=== PATIENT | male | born 1960 | race Caucasian/White ===

== ENCOUNTER 2017-11-03 17:49 | Emergency (ER) | payer OTHER, BC ==
--- NOTE | 2017-11-03 19:01 | ER Document Report ---
ED Medical Screen (RME) - General Chief Complaint: Abnormal Lab Results Stated Complaint: ABNORMAL LABS Time Seen by Provider: 11/03/17 18:51 Mode of Arrival: Ambulatory Information source: Patient Notes: 57-year-old man with a history of left staghorn calculus [facility]. Patient does report some left flank discomfort. TRAVEL OUTSIDE OF THE [place] IN LAST 30 DAYS: No - Related Data Allergies/Adverse Reactions: No Known Allergies Allergy (Unverified 09/09/15 06:49) Past Medical History - Social History Chew tobacco use (# tins/day): No Frequency of alcohol use: None Drug Abuse: None - Past Medical History Cardiac Medical History: Reports: Hx Coronary Artery Disease, Hx Heart Attack, Hx Hypertension Endocrine Medical History: Denies: Hx Diabetes Mellitus Type 1, Hx Diabetes Mellitus Type 2 Renal/ Medical History: Reports: Hx Kidney Stones. Denies: Hx Peritoneal Dialysis Past Surgical History: Reports: Hx Coronary Stent, Hx Kidney (Renal Surgery) - surgery to remove stones, Hx Orthopedic Surgery - Wrist surgery, Hx Urinary Tract Surgery - surgery to remove stones - Immunizations Hx Diphtheria, Pertussis, Tetanus Vaccination: Yes Physical Exam - Vital signs Vitals: Temp Pulse Resp BP Pulse Ox 98.0 F 75 16 111/94 H 96 11/03/17 18:15 11/03/17 18:15 11/03/17 18:15 11/03/17 18:15 11/03/17 18:15 Course - Vital Signs Vital signs: Temp Pulse Resp BP Pulse Ox 98.0 F 75 16 111/94 H 96 11/03/17 18:15 11/03/17 18:15 11/03/17 18:15 11/03/17 18:15 11/03/17 18:15 Doctor's Discharge - Discharge Referrals: DANE VALDEZ MD [Primary Care Provider] - Follow up as needed
[2017-11-03 19:23] LABS: ABSOLUTE BASOPHILS # (AUTO) 0.1 10^3/uL (0.0-0.2); ABSOLUTE EOSINOPHILS # (AUTO) 0.5 10^3/uL (0.0-0.6); ABSOLUTE LYMPHOCYTES (AUTO) 2.1 10^3/uL (0.5-4.7); ABSOLUTE NEUT (AUTO) 8.3 10^3/uL (1.7-8.2); BASOPHILS % (AUTO) 0.6 % (0-2); EOSINOPHILS % (AUTO) 4.4 % (0-6); HEMATOCRIT 47.2 % (37.9-51.0); HEMOGLOBIN 15.9 g/dL (13.5-17.0); LYMPHOCYTES % (AUTO) 17.6 % (13-45); MEAN CORPUSCULAR HGB CONC 33.7 g/dL (32.0-36.0); MEAN CORPUSCULAR VOLUME 86 fl (80-97); MONOCYTES % (AUTO) 8.1 % (3-13); PLATELET COUNT 231 10^3/uL (150-450); RED BLOOD COUNT 5.49 10^6/uL (4.35-5.55); RED CELL DISTRIBUTION WIDTH 14.8 % (11.5-14.0); SEGMENTED NEUTROPHILS % (AUTO) 69.3 % (42-78); TOTAL CELLS COUNTED % (AUTO) 100 %
--- NOTE | 2017-11-03 19:38 | ER Document Report ---
ED General - General Chief Complaint: Abnormal Lab Results Stated Complaint: ABNORMAL LABS Time Seen by Provider: 11/03/17 18:51 Mode of Arrival: Ambulatory Information source: Patient, [facility] Records Notes: 57-year-old male with coronary artery disease, hypertension, history of staghorn calculi presents after his primary care physician requested him go to the emergency department after recent labs showed a new GFR of 32 down from 60. Patient has a long-standing history of kidney stones. He states he was seen for a long time at [facility] by Dr. Dipesh Church. He underwent renal stents, lithotripsy. He states he required coiling of the kidney due to excessive bleeding because he was on Plavix. He was told that if he did not stop the blood thinning medications his kidney would never heal. He was seen by his material worker and was taken off the Plavix in June for 6 months. Patient currently denying any pain. He does admit to left CVA pressure but states this is not new. He otherwise feels well. TRAVEL OUTSIDE OF THE [place] IN LAST 30 DAYS: No - HPI Onset: Other Onset/Duration: Gradual, Persistent, Worse Quality of pain: Pressure Severity: Mild Associated symptoms: None Exacerbated by: Denies Relieved by: Denies Similar symptoms previously: Yes Recently seen / treated by doctor: Yes - Dr. Bowers at [facility] [phone] - Related Data Allergies/Adverse Reactions: No Known Allergies Allergy (Unverified 09/09/15 06:49) Past Medical History - General Information source: Patient - Social History Smoking Status: Never Smoker Chew tobacco use (# tins/day): No Frequency of alcohol use: None Drug Abuse: None Lives with: Spouse/Significant other Family History: CAD, Hypertension Patient has suicidal ideation: No Patient has homicidal ideation: No - Past Medical History Cardiac Medical History: Reports: Hx Coronary Artery Disease, Hx Heart Attack, Hx Hypertension Endocrine Medical History: Denies: Hx Diabetes Mellitus Type 1, Hx Diabetes Mellitus Type 2 Renal/ Medical History: Reports: Hx Kidney Stones. Denies: Hx Peritoneal Dialysis Past Surgical History: Reports: Hx Coronary Stent, Hx Kidney (Renal Surgery) - surgery to remove stones, Hx Orthopedic Surgery - Wrist surgery, Hx Urinary Tract Surgery - surgery to remove stones - Immunizations Hx Diphtheria, Pertussis, Tetanus Vaccination: Yes Review of Systems - Review of Systems Notes: REVIEW OF SYSTEMS: CONSTITUTIONAL : Denies fever, chills, or sweats. Denies recent illness. Denies weight loss, recent hospitalizations. EENT: Denies visual changes, eye pain. Denies nasal or sinus congestion or discharge. Denies sore throat, oral lesions, difficulty swallowing. CARDIOVASCULAR: Denies chest pain. Denies palpitations. Denies lower extremity edema. RESPIRATORY: Denies cough, cold, or chest congestion. Denies shortness of breath, wheezing. GASTROINTESTINAL: Denies abdominal pain or distention. Denies nausea, vomiting , or diarrhea. Denies blood in vomitus, stools, or per rectum. Denies black, tarry stools. Denies constipation. GENITOURINARY: Denies difficulty urinating, painful urination, frequency, blood in urine, or vaginal discharge. MUSCULOSKELETAL: Denies back or neck pain or stiffness. Denies joint pain or swelling. SKIN: Denies rash, lesions or sores. HEMATOLOGIC : Denies easy bruising or bleeding. LYMPHATIC: Denies swollen glands. NEUROLOGICAL: Denies confusion or altered mental status. Denies passing out or loss of consciousness. Denies dizziness or lightheadedness. Denies headache. Denies weakness or paralysis. Denies problems difficulty with ambulation, slurred speech. Denies sensory loss, numbness, or tingling. Denies seizures. PSYCHIATRIC: Denies anxiety or stress. Denies depression, suicidal ideation, or homicidal ideation. Denies visual or auditory hallucinations. Physical Exam - Vital signs Vitals: Temp Pulse Resp BP Pulse Ox 98.0 F 75 16 111/94 H 96 11/03/17 18:15 11/03/17 18:15 11/03/17 18:15 11/03/17 18:15 11/03/17 18:15 - Notes Notes: PHYSICAL EXAMINATION: GENERAL: Well-appearing, well-nourished and in no acute distress. HEAD: Atraumatic, normocephalic. EYES: Pupils equal round and reactive to light, extraocular movements intact, sclera anicteric, conjunctiva are normal. ENT: Nares patent, oropharynx clear without exudates. Moist mucous membranes. NECK: Normal range of motion, supple without lymphadenopathy LUNGS: Breath sounds clear to auscultation bilaterally and equal. No wheezes rales or rhonchi. HEART: Regular rate and rhythm without murmurs ABDOMEN: Soft, nontender, nondistended abdomen. No guarding, no rebound. No masses appreciated. Musculoskeletal: Normal range of motion, no pitting or edema. No cyanosis. NEUROLOGICAL: Cranial nerves grossly intact. Normal speech, normal gait. Normal sensory, motor exams PSYCH: Normal mood, normal affect. SKIN: Warm, Dry, normal turgor, no rashes or lesions noted. Course - Re-evaluation Re-evalutation: Laboratory 11/03/17 11/03/17 11/03/17 19:05 19:05 21:42 WBC 12.0 H RBC 5.49 Hgb 15.9 Hct 47.2 MCV 86 MCH 29.0 MCHC 33.7 RDW 14.8 H Plt Count 231 Seg Neutrophils % 69.3 Lymphocytes % 17.6 Monocytes % 8.1 Eosinophils % 4.4 Basophils % 0.6 Absolute Neutrophils 8.3 H Absolute Lymphocytes 2.1 Absolute Monocytes 1.0 Absolute Eosinophils 0.5 Absolute Basophils 0.1 Sodium 146.1 H Potassium 5.6 H Chloride 108 H Carbon Dioxide 24 Anion Gap 14 BUN 26 H Creatinine 1.47 H Est GFR ( Amer) > 60 Est GFR (Non-Af Amer) 49 L Glucose 92 Calcium 10.0 Total Bilirubin 1.5 H Direct Bilirubin 0.3 Neonat Total Bilirubin Not Reportable Neonat Direct Bilirubin Not Reportable Neonat Indirect Bili Not Reportable AST 31 ALT 31 Alkaline Phosphatase 82 Total Protein 8.3 H Albumin 4.8 Urine Color YELLOW Urine Appearance SLIGHTLY-CLOUDY Urine pH 5.0 Ur Specific [place] 1.019 Urine Protein NEGATIVE Urine Glucose (UA) NEGATIVE Urine Ketones 20 H Urine Blood NEGATIVE Urine Nitrite NEGATIVE Urine Bilirubin NEGATIVE Urine Urobilinogen NEGATIVE Ur Leukocyte Esterase LARGE H Urine WBC (Auto) 71 Urine RBC (Auto) 7 Urine Bacteria (Auto) TRACE Squamous Epi Cells Auto <1 Urine Mucus (Auto) RARE Urine Ascorbic Acid 40 H 11/03/17 22:30 WBC RBC Hgb Hct MCV MCH MCHC RDW Plt Count Seg Neutrophils % Lymphocytes % Monocytes % Eosinophils % Basophils % Absolute Neutrophils Absolute Lymphocytes Absolute Monocytes Absolute Eosinophils Absolute Basophils Sodium Potassium 4.6 D Chloride Carbon Dioxide Anion Gap BUN Creatinine Est GFR ( Amer) Est GFR (Non-Af Amer) Glucose Calcium Total Bilirubin Direct Bilirubin Neonat Total Bilirubin Neonat Direct Bilirubin Neonat Indirect Bili AST ALT Alkaline Phosphatase Total Protein Albumin Urine Color Urine Appearance Urine pH Ur Specific [place] Urine Protein Urine Glucose (UA) Urine Ketones Urine Blood Urine Nitrite Urine Bilirubin Urine Urobilinogen Ur Leukocyte Esterase Urine WBC (Auto) Urine RBC (Auto) Urine Bacteria (Auto) Squamous Epi Cells Auto Urine Mucus (Auto) Urine Ascorbic Acid Limited or Localized CT 11/03/17 18:59 IMPRESSION: 1. Cholelithiasis. 2. Dense left renal calcifications of uncertain etiology. Is there a clinical history of tuberculosis? Renal Ultrasound 11/03/17 19:33 IMPRESSION: Dense intrarenal calcifications in the left kidney of uncertain etiology. No ureteral obstruction. 11/03/17 23:41 57-year-old male with complex nephrology and urology history secondary to staghorn calculi. Patient has undergone extensive testing, interventions for the staghorn calculi without improvement. Recently his primary care physician did blood work which he was informed today required him to be seen in the emergency department. Per the patient he was informed that his GFR was 32. Today it is 49. He does have mild elevation in his creatinine which is likely the patient's baseline. Potassium was found to be 5.6 and was treated with calcium and insulin. Repeat potassium is now 4.6. Patient warned against eating foods high in potassium at this time. I did attempt to contact Dr. Bowers but was unsuccessful. Patient does not want admission or transfer. He says that he has a relationship with the urologist and drivers license examiner in [place]. He will return to Dr. Bowers's clinic tomorrow with the results of today' s testing which I have provided him. Patient has remained comfortable and stable throughout his ED course. He does not complain of any pain. Keflex given for patient's UTI. Patient provided the opportunity to ask questions, and express concerns. Discharge instructions discussed. Patient is agreeable with discharge home. Return indications explained and discussed with the patient who displays understanding. Patient encouraged to return to the emergency department immediately with any concerns. 11/04/17 00:08 - Vital Signs Vital signs: Temp Pulse Resp BP Pulse Ox 98.0 F 75 16 111/94 H 96 11/03/17 18:15 11/03/17 18:15 11/03/17 18:15 11/03/17 18:15 11/03/17 18:15 - Laboratory Result Diagrams: 11/03/17 19:05 07/31/18 22:30 Laboratory results interpreted by me: 11/03/17 11/03/17 11/03/17 19:05 19:05 21:42 WBC 12.0 H RDW 14.8 H Absolute Neutrophils 8.3 H Sodium 146.1 H Potassium 5.6 H Chloride 108 H BUN 26 H Creatinine 1.47 H Est GFR (Non-Af Amer) 49 L Total Bilirubin 1.5 H Total Protein 8.3 H Urine Ketones 20 H Ur Leukocyte Esterase LARGE H Urine Ascorbic Acid 40 H - Diagnostic Test Radiology reviewed: Image reviewed, Reports reviewed - EKG Interpretation by Me EKG shows normal: Sinus rhythm Rate: Normal Rhythm: NSR When compared to previous EKG there are: No significant change Discharge - Discharge Clinical Impression: Staghorn calculus, CAL (acute kidney injury), Hyperkalemia UTI (urinary tract infection) Qualifiers: Urinary tract infection type: site unspecified Hematuria presence: without hematuria Qualified Code(s): N39.0 - Urinary tract infection, site not specified Condition: Good Disposition: HOME, SELF-CARE Instructions: Cephalexin ([facility]), Kidney Injury ([facility]), Urinary Tract Infection ( [facility]) Prescriptions: Cephalexin Monohydrate [Keflex 500 mg Capsule] 500 mg PO BID 10 Days #20 capsule Forms: Elevated Blood Pressure Referrals: DANE VALDEZ MD [NO LOCAL MD] - Follow up as needed
[2017-11-03 19:45] LABS: ALANINE AMINOTRANSFERASE 31 U/L (21-72); ALBUMIN 4.8 g/dL (3.5-5.0); ALKALINE PHOSPHATASE 82 U/L (38-126); ANION GAP 14 (5-19); ASPARTATE AMINO TRANSFERASE 31 U/L (17-59); BILIRUBIN,DIRECT 0.3 mg/dL (0.0-0.4); BILIRUBIN,TOTAL 1.5 mg/dL (0.2-1.3); BLOOD UREA NITROGEN 26 mg/dL (7-20); CARBON DIOXIDE 24 mmol/L (22-30); CHLORIDE 108 mmol/L (98-107); GLUCOSE 92 mg/dL (75-110); POTASSIUM 5.6 mmol/L (3.6-5.0); SODIUM 146.1 mmol/L (137-145); TOTAL PROTEIN 8.3 g/dL (6.3-8.2)
--- NOTE | 2017-11-03 19:51 | RADIOLOGY REPORT (SQ) ---
EXAM DESCRIPTION: CT LTD RENAL STONE PROTOCOL ON COMPLETED DATE/TIME: 11/03/2017 7:29 pm REASON FOR STUDY: left flank pain COMPARISON: None. TECHNIQUE: CT scan of the abdomen and pelvis performed without intravenous or oral contrast. Images reviewed with lung, soft tissue, and bone windows. Reconstructed coronal and sagittal MPR images revi ewed. All images stored on PACS. All CT scanners at this facility use dose modulation, iterative reconstruction, and/or weight based d osing when appropriate to reduce radiation dose to as low as reasonably achievable (ALARA). [facility]: Dose Right [facility]: CareDose [facility]: Dose Right [facility]: Teradose 4D [facility]: [employer] RADIATION DOSE: CT Rad equipment meets quality standard of care and radiation dose reduction techniq ues were employed. CTDIvol: 13.0 mGy. DLP: 789 mGy-cm.mGy. LIMITATIONS: None. FINDINGS: LOWER CHEST: No significant findings. No nodules or infiltrates. NON-CONTRASTED LIVER, SPLEEN, ADRENALS: Evaluation limited by lack of IV contrast. No identified sign ificant masses. PANCREAS: No masses. No peripancreatic inflammatory changes. GALLBLADDER: Small gallstones are present. RIGHT KIDNEY AND URETER: No suspicious masses. Assessment limited by lack of IV contrast. No signif icant calcifications. No hydronephrosis or hydroureter. LEFT KIDNEY AND URETER: No solid mass. There is a 3 cm cyst. Dense intrarenal and cortical calcifi cations are present. No hydronephrosis or hydroureter. AORTA AND RETROPERITONEUM: No aneurysm. No retroperitoneal masses or adenopathy. BOWEL AND PERITONEAL CAVITY: No obvious masses or inflammatory changes. No free fluid. APPENDIX: Normal. PELVIS, BLADDER, AND ABDOMINAL WALL:No abnormal masses. No free fluid. Bladder normal. BONES: No significant findings. OTHER: No other significant finding. IMPRESSION: 1. Cholelithiasis. 2. Dense left renal calcifications of uncertain etiology. Is there a clinical history of tuberculos is? COMMENT: Quality ID # [id number]: Final reports with documentation of one or more dose reduction techniques (e.g., Automated exposure control, adjustment of the mA and/or kV according to patient size, use of iterative reconstruction technique) TECHNICAL DOCUMENTATION: JOB ID: [id number] [employer]- All Rights Reserved Reading location - IP/workstation name: [email or web address]
[2017-11-03] MEDS ORDERED: CALCIUM GLUCONATE 1000 MG/10 ML INJ IV ONE (21:25)
[2017-11-03] MEDS ORDERED: DEXTROSE 50%-WATER 25 GM/50 ML DISP.SYRIN IV ONE (21:26)
[2017-11-03] MEDS ORDERED: INSULIN REG, HUMAN 100 UNIT/ML 3 ML VIAL (PYX) IV ONE (21:26)
--- NOTE | 2017-11-03 21:27 | RADIOLOGY REPORT (SQ) ---
EXAM DESCRIPTION: U/S RETROPERITON LTD COMPLETED DATE/TIME: 11/03/2017 8:14 pm REASON FOR STUDY: New GFR 32 down from 60 COMPARISON: None. TECHNIQUE: Dynamic and static grayscale images acquired of the kidneys and bladder and recorded on P ACS. Additional selected color Doppler and spectral images recorded. LIMITATIONS: None. FINDINGS: RIGHT KIDNEY: Normal size, 10.9 cm. Normal echogenicity. No solid or suspicious francisco j s. No hydronephrosis. No calcifications. LEFT KIDNEY: Normal size, 13.7 cm. Normal echogenicity. No solid or suspicious masses. Dense i ntrarenal calcifications are present. No hydronephrosis. BLADDER: Bilateral ureteral jets are seen. OTHER FINDINGS: No other significant finding. IMPRESSION: Dense intrarenal calcifications in the left kidney of uncertain etiology. No ureteral o bstruction. TECHNICAL DOCUMENTATION: JOB ID: [id number] [employer]- All Rights Reserved Reading location - IP/workstation name: [email or web address]
[2017-11-03] MEDS ORDERED: NORMAL SALINE 1000 ML 1,000 ML IV ONE (21:32)
[2017-11-03 22:09] LABS: APPEARANCE,URINE SLIGHTLY-CLOUDY; BILIRUBIN,URINE NEGATIVE (NEGATIVE); COLOR,URINE YELLOW; GLUCOSE, URINE NEGATIVE (NEGATIVE); KETONES,URINE 20 mg/dL (NEGATIVE); LEUKOCYTE ESTERASE,URINE LARGE (NEGATIVE); NITRITE,URINE NEGATIVE (NEGATIVE); PROTEIN,URINE NEGATIVE (NEGATIVE); URINE SPECIFIC GRAVITY 1.019; UROBILINOGEN,URINE NEGATIVE mg/dL (<2.0)
--- NOTE | 2017-11-03 22:12 | EKG REPORT ---
SEVERITY:- ABNORMAL ECG - SINUS RHYTHM NONSPECIFIC INTRAVENTRICULAR CONDUCTION DELAY INFERIOR INFARCT, AGE INDETERMINATE : Confirmed by: Jacob Mills 03-Nov-2017 22:11:46
[2017-11-03] MEDS ORDERED: CEPHALEXIN 500 MG CAPSULE PO ONE (23:44)
[2017-11-04 00:30] VITALS: BP 123/92
== END 2017-11-04 00:32 | disposition home or self-care (01) ==
LOC: ER 17:49
DX: N39.0 Urinary tract infection, site not specified (principal); E87.5 Hyperkalemia; N17.9 Acute kidney failure, unspecified; N20.0 Calculus of kidney; I25.10 Atherosclerotic heart disease of native coronary artery without angina pectoris; I25.2 Old myocardial infarction; I10 Essential (primary) hypertension; Z87.442 Personal history of urinary calculi
CPT/HCPCS: 93005; 99284; 96361; 96374; 96375; 36415; 84132; 85025; 80053; 81001; 76775; 76380; 93010; J0610; J3490; J1815; J7030

== ENCOUNTER 2018-09-16 03:54 | Emergency (ER) | payer OTHER, BC ==
[2018-09-16] MEDS ORDERED: HYDRALAZINE HCL INJ/PF 20 MG/1 ML SDV IV ONE (06:18)
[2018-09-16 06:55] LABS: APPEARANCE,URINE CLEAR; BILIRUBIN,URINE NEGATIVE (NEGATIVE); COLOR,URINE STRAW; GLUCOSE, URINE NEGATIVE (NEGATIVE); KETONES,URINE NEGATIVE (NEGATIVE); LEUKOCYTE ESTERASE,URINE SMALL (NEGATIVE); NITRITE,URINE NEGATIVE (NEGATIVE); PROTEIN,URINE NEGATIVE (NEGATIVE); URINE SPECIFIC GRAVITY 1.003; UROBILINOGEN,URINE NEGATIVE mg/dL (<2.0)
--- NOTE | 2018-09-16 06:59 | ER Document Report ---
Entered by ASAF CARCAMO SCRIBE 09/16/18 0638 Acting as scribe for:REJI ZHU MD ED General - General Chief Complaint: High Blood Pressure Stated Complaint: BLOOD PRESSURE ISSUE Time Seen by Provider: 09/16/18 06:05 Primary Care Provider: MARITZA LOBO PA-C [Primary Care Provider] - Follow up as needed Mode of Arrival: Ambulatory Information source: Patient Notes: Patient is a 58 year old male with HTN, CAD and a history of FL and kidney stones presents to the emergency department complaining of an elevated blood pressure onset this morning. Patient states he woke up this morning around 0200 "not feeling right" and proceeded to check his blood pressure which was found to be 200/120. Patient states his blood pressure normally runs 130s/80s-90s. Patient states he currently feels much better. He denies any other focal sympt oms. Patient is currently prescribed atorvastatin, carvedilol and potassium citrate and reports taking a daily Aspirin. TRAVEL OUTSIDE OF THE [place] 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 Lives with: Family Family History: CAD, Hypertension Patient has suicidal ideation: No Patient has homicidal ideation: No - Past Medical History Cardiac Medical History: Reports: Hx Coronary Artery Disease, Hx Heart Attack - 2016, Hx Hypertension Renal/ Medical History: Reports: Hx Kidney Stones Past Surgical History: Reports: Hx Coronary Stent - 1 stent in the proximal LAD, 1 stent in the distal LAD,, Hx Kidney (Renal Surgery) - surgery to remove stones, Hx Orthopedic Surgery - Wrist surgery, Hx Pacemaker - Demand pacemaker, Hx Urinary Tract Surgery - surgery to remove stones - Immunizations Hx Diphtheria, Pertussis, Tetanus Vaccination: Yes Review of Systems - Review of Systems Constitutional: See HPI EENT: No symptoms reported Cardiovascular: Edema - Patient reports he has had some swelling with his hands recently. He does admit to eating mostly high sodium foods. Respiratory: No symptoms reported Gastrointestinal: No symptoms reported Genitourinary: No symptoms reported Male Genitourinary: No symptoms reported Musculoskeletal: No symptoms reported Skin: No symptoms reported Hematologic/Lymphatic: No symptoms reported Neurological/Psychological: No symptoms reported -: Yes All other systems reviewed and negative Physical Exam - Vital signs Vitals: Temp Pulse Resp BP Pulse Ox 97.7 F 66 16 200/117 H 97 09/16/18 04:02 09/16/18 04:02 09/16/18 04:02 09/16/18 04:02 09/16/18 04:02 - Notes Notes: GENERAL: Alert, interacts well. No acute distress. HEAD: Normocephalic, atraumatic. EYES: Pupils equal, round, and reactive to light. Extraocular movements intact. ENT: Oral mucosa moist, tongue midline. NECK: Full range of motion. Supple. Trachea midline. No bruits. LUNGS: Clear to auscultation bilaterally, no wheezes, rales, or rhonchi. No respiratory distress. HEART: Regular rate. 2/6 early systolic murmur. ABDOMEN: Soft, non-tender. Non-distended. Bowel sounds present in all 4 quadrants. No guarding, rigidity, or rebound. EXTREMITIES: Moves all 4 extremities spontaneously. No edema, radial and dorsalis pedis pulses 2/4 bilaterally. No cyanosis. NEUROLOGICAL: Alert and oriented x3. Normal speech. PSYCH: Normal affect, normal mood. SKIN: Warm, dry, normal turgor. No rashes or lesions noted. Course - Re-evaluation Re-evalutation: 09/16/18 08:08 Patient's blood pressure did come down to 140 systolic, he is resting comfortably. We will repeat his troponin about 12 03. He is going to take his regular medications at this time to include his carvedilol, atorvastatin, and aspirin. - Vital Signs Vital signs: Temp Pulse Resp BP Pulse Ox 97.7 F 66 13 137/92 H 97 09/16/18 04:02 09/16/18 04:02 09/16/18 09:31 09/16/18 09:31 09/16/18 09:31 - Laboratory Result Diagrams: 09/16/18 06:35 09/16/18 06:35 Laboratory results interpreted by me: 09/16/18 09/16/18 09/16/18 06:35 06:35 06:35 WBC 10.9 H RBC 5.59 H RDW 14.5 H Chloride 109 H Creatinine 1.27 H Est GFR (Non-Af Amer) 58 L Glucose 112 H Urine Blood SMALL H Ur Leukocyte Esterase SMALL H - Diagnostic Test Radiology reviewed: Image reviewed, Reports reviewed - Chest x-ray shows some right basilar atelectasis, pacemaker. - EKG Interpretation by Me EKG shows normal: Sinus rhythm, [place], Intervals, ST-T Waves. abnormal: QRS Complexes - Old inferior infarct Rate: Normal - 69 Rhythm: NSR When compared to previous EKG there are: No significant change Discharge - Discharge Clinical Impression: High blood pressure Qualifiers: Hypertension type: essential hypertension Qualified Code(s): I10 - Essential (primary) hypertension Condition: Stable Disposition: HOME, SELF-CARE Additional Instructions: Check your blood pressure off and on throughout the day and keep a record. Follow-up with your primary care provider if your blood pressure continues to run higher than normal. RETURN TO THE EMERGENCY ROOM IF ANY NEW OR WORSENING SYMPTOMS. Referrals: MARITZA LOBO PA-C [Primary Care Provider] - Follow up as needed Scribe Attestation: 09/16/18 07:38 I personally performed the services described in the documentation, reviewed and edited the documentation which was dictated to the scribe in my presence, and it accurately records my words and actions. I personally performed the services described in the documentation, reviewed and edited the documentation which was dictated to the scribe in my presence, and it accurately records my words and actions.
[2018-09-16 07:00] LABS: ABSOLUTE BASOPHILS # (AUTO) 0.1 10^3/uL (0.0-0.2); ABSOLUTE EOSINOPHILS # (AUTO) 0.3 10^3/uL (0.0-0.6); ABSOLUTE LYMPHOCYTES (AUTO) 1.8 10^3/uL (0.5-4.7); ABSOLUTE MONOCYTES (AUTO) 0.6 10^3/uL (0.1-1.4); ABSOLUTE NEUT (AUTO) 8.1 10^3/uL (1.7-8.2); BASOPHILS % (AUTO) 0.9 % (0-2); EOSINOPHILS % (AUTO) 2.7 % (0-6); HEMATOCRIT 46.8 % (37.9-51.0); HEMOGLOBIN 15.9 g/dL (13.5-17.0); LYMPHOCYTES % (AUTO) 16.3 % (13-45); MEAN CORPUSCULAR HEMOGLOBIN 28.5 pg (27.0-33.4); MEAN CORPUSCULAR VOLUME 84 fl (80-97); PLATELET COUNT 182 10^3/uL (150-450); RED BLOOD COUNT 5.59 10^6/uL (4.35-5.55); RED CELL DISTRIBUTION WIDTH 14.5 % (11.5-14.0); SEGMENTED NEUTROPHILS % (AUTO) 74.1 % (42-78); TOTAL CELLS COUNTED % (AUTO) 100 %; WHITE BLOOD COUNT 10.9 10^3/uL (4.0-10.5)
[2018-09-16 07:07] LABS: ALANINE AMINOTRANSFERASE 47 U/L (21-72); ALBUMIN 4.1 g/dL (3.5-5.0); ALKALINE PHOSPHATASE 82 U/L (38-126); ANION GAP 8 (5-19); ASPARTATE AMINO TRANSFERASE 32 U/L (17-59); BILIRUBIN,DIRECT 0.2 mg/dL (0.0-0.4); BILIRUBIN,TOTAL 0.8 mg/dL (0.2-1.3); BLOOD UREA NITROGEN 18 mg/dL (7-20); CALCIUM 9.7 mg/dL (8.4-10.2); CARBON DIOXIDE 27 mmol/L (22-30); CHLORIDE 109 mmol/L (98-107); CREATINE KINASE 72 U/L (55-170); GLUCOSE 112 mg/dL (75-110); POTASSIUM 4.4 mmol/L (3.6-5.0); SODIUM 143.8 mmol/L (137-145); TOTAL PROTEIN 6.8 g/dL (6.3-8.2)
--- NOTE | 2018-09-16 07:17 | RADIOLOGY REPORT (SQ) ---
EXAM DESCRIPTION: XR CHEST 1 VIEW COMPLETED DATE/TME: 09/16/2018 06:18 CLINICAL HISTORY: 58 years Male, elevated BP COMPARISON: 09/08/18 NUMBER OF VIEWS/TECHNIQUE: 1/AP FINDINGS: Small linear atelectasis at the right lung base. Left cardiac stimulator with leads. Normal cardiac silhouette size. Atherosclerotic vascular disease. No pneumothorax. Stable bony thorax. IMPRESSION: New small right basilar atelectasis.
[2018-09-16 07:20] LABS: CREATINE KINASE MB 0.99 ng/mL (<4.55); TROPONIN I < 0.012 ng/mL
--- NOTE | 2018-09-16 08:16 | EKG REPORT ---
SEVERITY:- ABNORMAL ECG - SINUS RHYTHM INFERIOR INFARCT, AGE INDETERMINATE : Confirmed by: Ortega Cid MD 16-Sep-2018 08:15:36
[2018-09-16 09:45] VITALS: BP 137/92
== END 2018-09-16 09:56 | disposition home or self-care (01) ==
LOC: ER 03:54
DX: I10 Essential (primary) hypertension (principal); I25.10 Atherosclerotic heart disease of native coronary artery without angina pectoris; I25.2 Old myocardial infarction; Z79.899 Other long term (current) drug therapy; Z87.891 Personal history of nicotine dependence
CPT/HCPCS: 93005; 99284; 96374; 36415; 87086; 82553; 82550; 85025; 80053; 81001; 84484; 71045; 93010; J0360

== ENCOUNTER 2019-10-13 13:27 | Emergency (ER) | payer OTHER, BC ==
--- NOTE | 2019-10-13 15:23 | ER Document Report ---
Entered by SALVATORE ASKEW SCRIBE 10/13/19 1436 Acting as scribe for:REJI ZHU MD ED GI/ - General Chief Complaint: Diarrhea Stated Complaint: DIARRHEA Time Seen by Provider: 10/13/19 14:08 Primary Care Provider: MARITZA LOBO PA-C [NO LOCAL MD] - Follow up as needed Mode of Arrival: Ambulatory Information source: Patient Notes: This 59-year-old male patient presents to the emergency department today for complaints of "pink poop". Patient states he has been having loose watery stool about twice a day for the last x3-4 days. Patient states he has not been having large-volume bowel movements, stating he only "poops a little". [facility], he called an urgent care and they told him he needed to come to the ED. Patient states he has had colitis in the past (2011) and his symptoms today do not feel like his colitis flare as he does not have pain today. Patient denies any fever, abdominal pain, cough, or shortness of breath. TRAVEL OUTSIDE OF THE [place] IN LAST 30 DAYS: No - Related Data Allergies/Adverse Reactions: No Known Allergies Allergy (Unverified 09/09/15 06:49) Past Medical History - General Information source: Patient - Social History Smoking Status: Former Smoker - Quit in 1992 Cigarette use (# per day): No Frequency of alcohol use: None Drug Abuse: None Occupation: [employer] Lives with: Spouse/Significant other Family History: Reviewed & Not Pertinent, CAD, Hypertension - Past Medical History Cardiac Medical History: Reports: Hx Coronary Artery Disease, Hx Heart Attack - 2016, Hx Hypertension Renal/ Medical History: Reports: Hx Kidney Stones Past Surgical History: Reports: Hx Cardiac Surgery - demand pacemaker, Hx Coronary Stent - 1 stent in the proximal LAD, 1 stent in the distal LAD,, Hx Kidney (Renal Surgery) - surgery to remove stones, Hx Orthopedic Surgery - Wrist surgery, Hx Pacemaker - Demand pacemaker, Hx Urinary Tract Surgery - surgery to remove stones - Immunizations Hx Diphtheria, Pertussis, Tetanus Vaccination: Yes Review of Systems - Review of Systems Constitutional: No symptoms reported EENT: No symptoms reported Cardiovascular: No symptoms reported Respiratory: No symptoms reported Gastrointestinal: See HPI, Diarrhea - pink colored Genitourinary: No symptoms reported Male Genitourinary: No symptoms reported Musculoskeletal: No symptoms reported Skin: No symptoms reported Hematologic/Lymphatic: No symptoms reported Neurological/Psychological: No symptoms reported -: Yes All other systems reviewed and negative Physical Exam - Vital signs Vitals: Temp Pulse Resp BP Pulse Ox 97.4 F 62 14 158/95 H 94 10/13/19 14:13 10/13/19 14:13 10/13/19 14:13 10/13/19 14:13 10/13/19 14:13 - Notes Notes: Physical Exam: General: Alert, appears well. HEENT: Normocephalic. Atraumatic. PERRL. Extraocular movements intact. Oropharynx clear. Neck: Supple. Non-tender. Respiratory: No respiratory distress. Clear and equal breath sounds bilaterally. Cardiovascular: Regular rate and rhythm. Known systolic crescendo murmur. Abdominal: Normal Inspection. Non-tender. No distension. Normal Bowel Sounds. Back: No gross abnormalities. Extremities: Moves all four extremities. Upper extremities: Normal inspection. Normal ROM. Lower extremities: Normal inspection. No edema. Normal ROM. Neurological: Normal cognition. AAOx4. Normal speech. Psychological: Normal affect. Normal Mood. Skin: Warm. Dry. Normal color. Course - Re-evaluation Re-evalutation: 10/13/19 17:02 This time patient states he feels fine. He has been unable to produce a stool the entire time is been here. The urine does have some white blood cells with leukocyte esterase, he has no UTI symptoms. Urine will be cultured. He will be encouraged to go on clear liquid diet for the next day as he states that he has to eat to cause the diarrhea to occur. - Vital Signs Vital signs: Temp Pulse Resp BP Pulse Ox 97.4 F 62 14 158/95 H 94 10/13/19 14:13 10/13/19 14:13 10/13/19 14:13 10/13/19 14:13 10/13/19 14:13 - Laboratory Result Diagrams: 10/13/19 14:54 10/13/19 14:54 Laboratory results interpreted by me: 10/13/19 10/13/19 10/13/19 14:54 14:54 14:54 WBC 10.6 H Total Bilirubin 1.8 H Urine Blood MODERATE H Ur Leukocyte Esterase LARGE H Discharge - Discharge Clinical Impression: Encounter for laboratory testing for COVID-19 virus Diarrhea Qualifiers: Diarrhea type: unspecified type Qualified Code(s): R19.7 - Diarrhea, unspecified Condition: Stable Disposition: HOME, SELF-CARE Additional Instructions: Diarrhea Diarrhea means frequent, watery stools. There are many causes. Any problem that keeps the intestinal tract from absorbing water from the stool can lead to diarrhea. A sudden new diarrhea problem is usually caused by a virus, food sensitivity, toxic bacteria, or drugs. In this case, we expect the problem to go away soon. Testing is done only if you seem seriously ill from the diarrhea. If you have chronic diarrhea, or diarrhea that keeps coming back, we need to find out why. Chronic diarrhea can be due to inflammation of the bowels such as Crohn's disease or ulcerative colitis, food sensitivity such as intolerance to lactose or wheat protein, irritable bowel syndrome, and other problems. If your diarrhea is a significant problem but it's not clear why you have it, we'll refer you to a specialist for further testing. During an episode of diarrhea, drink small amounts (two to six ounces) of clear liquids (soft drinks, sport drinks, herb teas, broth, etc). Take fluids frequently to prevent dehydration. It's usually not a problem to take mild anti- diarrhea medication such as Kaopectate or Pepto-Bismol. As the diarrhea eases, advance to small amounts of bland food (mashed potato, toast) for 24 hours. Call the physician if blood appears in your vomit or stool, if vomiting lasts longer than 24 hours, if the abdominal pain worsens or becomes localized to one area, if you develop high fever, or if you become lightheaded and weak. Drink plenty of cool clear liquids today. Take Imodium-AD for diarrhea if needed. Your urine was cultured but because there were some white blood cells noted in it. If it grows a bacteria that needs treatment, you will be contacted. Follow-up with your primary care provider if you do not continue to improve. RETURN TO THE EMERGENCY ROOM IF ANY NEW OR WORSENING SYMPTOMS. You are being tested for the virus that causes coronavirus disease 2019 (COVID- 19). Public health actions are necessary to ensure protection of your health and the health of others, and to prevent further spread of infection. COVID-19 is caused by a virus that can cause symptoms, such as fever, cough, and shortness of breath. The primary transmission from person to person is by coughing or sneezing. On May 05, 2019, the World Health Organization announced the public health emergency of international concern and on May 06, 2019 the [place] Department of Health and Human Services declared a public health emergency. If the virus that causes COVID-19 spreads in the community, it could have severe public health consequences. As a person under investigation for COVID-19, the [place] Department of Health and Human Services, division of public health advise you to adhere to the following guidance until your test results are reported to you. If your test result is positive, you will receive additional information from your provider and your local health department at that time. Remain at home until your provider or public health officials inform you that your test was negative or until all of the following criteria are met 1) At least 72 hours have passed since recovery defined as resolution of fever without the use of fever-reducing medications and improvement in respiratory symptoms (e.g. cough, shortness of breath) 2) at least 7 days have passed since your symptoms first appeared. Keep a log of visitors to your home using the form provided. Notify any visitors to your home of your isolation status. If you plan to move to a new address or leave the county, notify the local health department in your county. Call a doctor or seek care if you have an urgent medical need. Before seeking medical care, call ahead and get instructions from the provider before arriving at the medical office, clinic or hospital. Notify them that you are being tested for the virus that causes COVID-19 so that arrangements can be made, as necessary, to prevent transmission to others in the healthcare setting. Next, notify your local health department in your county. If a medical emergency arises and you need to call 911, inform the first responders that you are being tested for the virus that causes COVID-19. Next, notify the local health department and your County. Adhere to all guidance set forth by the [place] division of public health for home care of patients that is based on guidance from the Centers for Disease Control and Prevention with suspected or confirmed COVID-19. Your health and the health of our community are top priorities. [place] health officials remain available to provide assistance and counseling T about COVID-19 and compliance with his guidance. Referrals: MARITZA LOBO PA-C [NO LOCAL MD] - Follow up as needed I personally performed the services described in the documentation, reviewed and edited the documentation which was dictated to the scribe in my presence, and it accurately records my words and actions.
[2019-10-13 15:34] LABS: ABSOLUTE BASOPHILS # (AUTO) 0.1 10^3/uL (0.0-0.2); ABSOLUTE EOSINOPHILS # (AUTO) 0.1 10^3/uL (0.0-0.6); ABSOLUTE LYMPHOCYTES (AUTO) 1.5 10^3/uL (0.5-4.7); ABSOLUTE MONOCYTES (AUTO) 0.7 10^3/uL (0.1-1.4); ABSOLUTE NEUT (AUTO) 8.2 10^3/uL (1.7-8.2); BASOPHILS % (AUTO) 0.7 % (0-2); EOSINOPHILS % (AUTO) 0.5 % (0-6); HEMATOCRIT 45.9 % (37.9-51.0); HEMOGLOBIN 15.9 g/dL (13.5-17.0); MEAN CORPUSCULAR HEMOGLOBIN 28.9 pg (27.0-33.4); MEAN CORPUSCULAR HGB CONC 34.6 g/dL (32.0-36.0); MEAN CORPUSCULAR VOLUME 84 fl (80-97); MONOCYTES % (AUTO) 6.9 % (3-13); PLATELET COUNT 191 10^3/uL (150-450); RED CELL DISTRIBUTION WIDTH 13.5 % (11.5-14.0); SEGMENTED NEUTROPHILS % (AUTO) 77.9 % (42-78); TOTAL CELLS COUNTED % (AUTO) 100 %; WHITE BLOOD COUNT 10.6 10^3/uL (4.0-10.5)
[2019-10-13 15:43] LABS: APPEARANCE,URINE CLEAR; BILIRUBIN,URINE NEGATIVE (NEGATIVE); COLOR,URINE YELLOW; GLUCOSE, URINE NEGATIVE (NEGATIVE); KETONES,URINE NEGATIVE (NEGATIVE); LEUKOCYTE ESTERASE,URINE LARGE (NEGATIVE); NITRITE,URINE NEGATIVE (NEGATIVE); PROTEIN,URINE NEGATIVE (NEGATIVE); URINE SPECIFIC GRAVITY 1.016; UROBILINOGEN,URINE NEGATIVE mg/dL (<2.0)
[2019-10-13 15:55] LABS: ALBUMIN 4.6 g/dL (3.5-5.0); ALKALINE PHOSPHATASE 81 U/L (38-126); ANION GAP 8 (5-19); ASPARTATE AMINO TRANSFERASE 28 U/L (17-59); BILIRUBIN,TOTAL 1.8 mg/dL (0.2-1.3); BLOOD UREA NITROGEN 17 mg/dL (7-20); C-REACTIVE PROTEIN < 5.0 mg/L (<10.0); CALCIUM 9.5 mg/dL (8.4-10.2); CARBON DIOXIDE 28 mmol/L (22-30); CHLORIDE 104 mmol/L (98-107); GLUCOSE 98 mg/dL (75-110); POTASSIUM 3.7 mmol/L (3.6-5.0); TOTAL PROTEIN 7.3 g/dL (6.3-8.2)
[2019-10-13 16:18] LABS: ERYTHROCYTE SEDIMENTATION RATE 8 mm/hr (0-20)
[2019-10-13 17:22] VITALS: BP 140/87
== END 2019-10-13 17:23 | disposition home or self-care (01) ==
LOC: ER 13:27
DX: R19.7 Diarrhea, unspecified (principal); R19.5 Other fecal abnormalities; I25.10 Atherosclerotic heart disease of native coronary artery without angina pectoris; I10 Essential (primary) hypertension; Z87.19 Personal history of other diseases of the digestive system; Z87.891 Personal history of nicotine dependence; Z20.828 Contact with and (suspected) exposure to other viral communicable diseases
CPT/HCPCS: 99284; 36415; 87086; 85025; 85652; 87635; 86140; 80053; 81001; C9803

== ENCOUNTER 2020-03-03 19:16 | Emergency (ER) | payer BC, OTHER ==
--- NOTE | 2020-03-03 19:53 | ER Document Report ---
ED Medical Screen (RME) - General Chief Complaint: Numbness of Arm Stated Complaint: LEFT ARM TINGLY, HIGH BLOOD PRESSURE Time Seen by Provider: 03/03/20 19:46 Primary Care Provider: LIZBETH ALTMAN [Primary Care Provider] - Follow up as needed Mode of Arrival: Ambulatory Information source: Patient Notes: 59-year-old male presented to ED for complaint of chest pain with numbness to the left hand. He states his get a burning pain in his chest. He does have a history of an [place]. He does have a pacemaker. He states last night his blood pressure was 190/100. And in the triage area is 168/104. He is alert oriented respirations regular nonlabored speaking in full sentences. I have greeted and performed a rapid initial assessment of this patient. A comprehensive ED assessment and evaluation of the patient, analysis of test results and completion of medical decision making process will be conducted by an additional ED providers. TRAVEL OUTSIDE OF THE [place] IN LAST 30 DAYS: No - Related Data Allergies/Adverse Reactions: No Known Allergies Allergy (Unverified 09/09/15 06:49) Home Medications: BP. cholesterol Past Medical History - Social History Frequency of alcohol use: None Drug Abuse: None - Past Medical History Cardiac Medical History: Reports: Hx Coronary Artery Disease, Hx Heart Attack - 2016, Hx Hypertension Endocrine Medical History: Denies: Hx Diabetes Mellitus Type 1, Hx Diabetes Mellitus Type 2 Renal/ Medical History: Reports: Hx Kidney Stones. Denies: Hx Peritoneal Dialysis Past Surgical History: Reports: Hx Cardiac Surgery - demand pacemaker, Hx Coronary Stent - 1 stent in the proximal LAD, 1 stent in the distal LAD,, Hx Kidney (Renal Surgery) - surgery to remove stones, Hx Orthopedic Surgery - Wrist surgery, Hx Pacemaker - Demand pacemaker, Hx Urinary Tract Surgery - surgery to remove stones - Immunizations Hx Diphtheria, Pertussis, Tetanus Vaccination: Yes Physical Exam - Vital signs Vitals: Temp Pulse Resp BP Pulse Ox 97.9 F 62 16 168/104 H 100 03/03/20 19:28 03/03/20 19:28 03/03/20 19:28 03/03/20 19:28 03/03/20 19:28 Course - Vital Signs Vital signs: Temp Pulse Resp BP Pulse Ox 97.9 F 62 16 168/104 H 100 03/03/20 19:28 03/03/20 19:28 03/03/20 19:28 03/03/20 19:28 03/03/20 19:28 Doctor's Discharge - Discharge [facility]errals: [facility] - Follow up as needed
[2020-03-03 20:27] LABS: ABSOLUTE BASOPHILS # (AUTO) 0.1 10^3/uL (0.0-0.2); ABSOLUTE EOSINOPHILS # (AUTO) 0.3 10^3/uL (0.0-0.6); ABSOLUTE LYMPHOCYTES (AUTO) 2.2 10^3/uL (0.5-4.7); ABSOLUTE MONOCYTES (AUTO) 1.1 10^3/uL (0.1-1.4); ABSOLUTE NEUT (AUTO) 9.4 10^3/uL (1.7-8.2); BASOPHILS % (AUTO) 0.7 % (0-2); EOSINOPHILS % (AUTO) 2.3 % (0-6); HEMATOCRIT 49.4 % (37.9-51.0); HEMOGLOBIN 16.7 g/dL (13.5-17.0); MEAN CORPUSCULAR HEMOGLOBIN 28.2 pg (27.0-33.4); MEAN CORPUSCULAR HGB CONC 33.7 g/dL (32.0-36.0); MEAN CORPUSCULAR VOLUME 84 fl (80-97); MONOCYTES % (AUTO) 8.2 % (3-13); PLATELET COUNT 182 10^3/uL (150-450); RED BLOOD COUNT 5.91 10^6/uL (4.35-5.55); RED CELL DISTRIBUTION WIDTH 14.1 % (11.5-14.0); SEGMENTED NEUTROPHILS % (AUTO) 71.8 % (42-78); TOTAL CELLS COUNTED % (AUTO) 100 %; WHITE BLOOD COUNT 13.1 10^3/uL (4.0-10.5)
[2020-03-03 20:44] LABS: ALBUMIN 4.4 g/dL (3.5-5.0); ALKALINE PHOSPHATASE 78 U/L (38-126); ANION GAP 10 (5-19); ASPARTATE AMINO TRANSFERASE 24 U/L (17-59); BILIRUBIN,DIRECT 0.1 mg/dL (0.0-0.4); BILIRUBIN,TOTAL 1.2 mg/dL (0.2-1.3); BLOOD UREA NITROGEN 21 mg/dL (7-20); CALCIUM 9.7 mg/dL (8.4-10.2); CARBON DIOXIDE 25 mmol/L (22-30); CHLORIDE 106 mmol/L (98-107); GLUCOSE 103 mg/dL (75-110); POTASSIUM 4.1 mmol/L (3.6-5.0); TOTAL PROTEIN 7.3 g/dL (6.3-8.2)
--- NOTE | 2020-03-03 21:03 | RADIOLOGY REPORT (SQ) ---
EXAM DESCRIPTION: CHEST 2 VIEWS CLINICAL HISTORY: 59 years Male, Chest pain COMPARISON: Single view of the chest September 16, 2018 FINDINGS: Lungs: Lungs are clear. No pneumonia or edema. No pneumothorax or pleural effusion. Mediastinum: Cardiac and mediastinal silhouette are normal. ICD device is in place. Bones: Osseous structures are normal. On the lateral view embolization coils are seen in the upper abdomen. IMPRESSION: No acute process. No pneumonia or edema.
--- NOTE | 2020-03-03 22:14 | ER Document Report ---
ED General - General Chief Complaint: Numbness of Arm Stated Complaint: LEFT ARM TINGLY, HIGH BLOOD PRESSURE Time Seen by Provider: 03/03/20 19:46 Primary Care Provider: LIZBETH ALTMAN [Primary Care Provider] - Follow up as needed Mode of Arrival: Ambulatory Information source: Patient Notes: 59-year-old man presenting to the emergency department with a complaint of pain in his left wrist and a burning sensation in his chest. He is also noted to have elevated blood pressure. He has a history of hypertension, he takes carvedilol and HCTZ. He took the medications approximately 30 minutes prior to coming to the emergency department tonight. Patient's pressures were running in the 170/110 range and he was having a burning sensation in his chest which concerned him that he may be having an acute coronary event. He took aspirin notes that he has been having the symptoms intermittently for the past 2 days. He has had a history of stent placement x2 and a pacemaker which was placed in 2017. Presently his symptoms have resolved blood pressure is 150/110. TRAVEL OUTSIDE OF THE [place] IN LAST 30 DAYS: No - Related Data Allergies/Adverse Reactions: No Known Allergies Allergy (Unverified 09/09/15 06:49) Home Medications: BP. cholesterol Past Medical History - General Information source: Patient - Social History Smoking Status: Former Smoker Frequency of alcohol use: None Drug Abuse: None Family History: Reviewed & Not Pertinent, CAD, Hypertension - Past Medical History Cardiac Medical History: Reports: Hx Coronary Artery Disease, Hx Heart Attack - 2016, Hx Hypertension Endocrine Medical History: Denies: Hx Diabetes Mellitus Type 1, Hx Diabetes Mellitus Type 2 Renal/ Medical History: Reports: Hx Kidney Stones. Denies: Hx Peritoneal Dialysis Past Surgical History: Reports: Hx Cardiac Surgery - demand pacemaker, Hx Coronary Stent - 1 stent in the proximal LAD, 1 stent in the distal LAD,, Hx Kidney (Renal Surgery) - surgery to remove stones, Hx Orthopedic Surgery - Wrist surgery, Hx Pacemaker - Demand pacemaker, Hx Urinary Tract Surgery - surgery to remove stones - Immunizations Hx Diphtheria, Pertussis, Tetanus Vaccination: Yes Review of Systems - Review of Systems Notes: Constitutional: Negative for fever. HENT: Negative for sore throat. Eyes: Negative for visual changes. Cardiovascular: See HPI Respiratory: Negative for shortness of breath. Gastrointestinal: Negative for abdominal pain, vomiting or diarrhea. Genitourinary: Negative for dysuria. Musculoskeletal: Negative for back pain. Skin: Negative for rash. Neurological: Negative for headaches, weakness or numbness. 10 point ROS negative except as marked above and in HPI. Physical Exam - Vital signs Vitals: Temp Pulse Resp BP Pulse Ox 97.9 F 62 16 168/104 H 100 03/03/20 19:28 03/03/20 19:28 03/03/20 19:28 03/03/20 19:28 03/03/20 19:28 - Notes Notes: PHYSICAL EXAMINATION: Physical Exam: General: Well-nourished well-developed 59-year-old man in no acute distress HEENT: NC/AT, pupils equal round and reactive to light, MM moist,nares clear, oropharynx clear, airway patent Neck: supple, no adenopathy, no masses. Good range of motion Lungs: clear, no wheezing, no rales no rhonchi CVS: Regular rate and rhythm no murmur gallop or rub Abdomen: Soft, active, nontender, no masses, no hepatosplenomegaly Ext: No edema, clubbing or cyanosis. Neuro: Alert and responsive, moving all 4 extremities on command, cranial nerves intact, no focal findings Skin: Intact no open lesions, no rash Course - Re-evaluation Re-evalutation: 03/03/20 22:10 Patient is doing much better, apparently took his blood pressure medication prior to coming to the emergency department. He also took aspirin. A review of his EKG reveals sinus rhythm with nonspecific IVCD delay, Q waves in 2 3 and F with age-indeterminate inferior infarct. Chest x-ray is clear, labs including troponin are negative. 03/03/20 22:11 HEART Score: HEART score for chest pain patients Score History Moderately suspicious 1 ECG Nonspecific repolarisation disturbance 1 Age 45-65 year 1 Risk factors =3 risk factors or history of atherosclerotic disease 2 Troponin = normal limit 0 Total = 5 Chest pain in a patient without evidence of cardiac or other serious etiology on workup today. I discussed with patient that, based on their age, risk factors and emergency department testing today, the likelihood that their symptoms are related to a heart attack is very low (estimated risk of heart attack or over the next 30 days of less than 1%). The patient demonstrates decision making capacity and has verbalized an understanding of these risks to me. Based on this, the patient has chosen to follow-up as an outpatient. Usual chest pain return precautions reviewed. The patient states understanding and agreement with this plan. - Vital Signs Vital signs: Temp Pulse Resp BP Pulse Ox 97.9 F 62 16 168/104 H 100 03/03/20 19:28 03/03/20 19:28 03/03/20 19:28 03/03/20 19:28 03/03/20 19:28 - Laboratory Result Diagrams: 03/03/20 20:00 03/03/20 20:00 Laboratory results interpreted by me: 03/03/20 03/03/20 20:00 20:00 WBC 13.1 H RBC 5.91 H RDW 14.1 H Absolute Neuts (auto) 9.4 H BUN 21 H - Diagnostic Test Radiology reviewed: Image reviewed, Reports reviewed Radiology results interpreted by me: 03/03/20 22:14 Chest X-Ray 03/03/20 19:50 IMPRESSION: No acute process. No pneumonia or edema. - EKG Interpretation by Me Rate: Normal - EKG interpreted by Dr. Brown: Normal sinus rhythm, rate 66, WI interval 164 ms, QT interval 404 ms, normal axis, nonspecific intraventricular conduction delay, Q waves in II,III, and avF, compared to EKG dated 09/16/2018, nonspecific intraventricular conduction delay new,Interpretation abnormal EKG Discharge - Discharge Clinical Impression: Left wrist pain Hypertension Qualifiers: Hypertension type: unspecified Qualified Code(s): I10 - Essential (primary) hypertension Condition: Good Disposition: HOME, SELF-CARE Instructions: High Blood Pressure ([facility]) Additional Instructions: You were seen in the emergency department tonight with complaint of blood pressure being elevated higher than the normal baseline. You are on a low dose of carvedilol and HCTZ. You may take an additional half of the carvedilol for pressures which are elevated greater than 150/90. 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 Also note that you were seen in the emergency department 03/03/2020, cardiac markers, EKG, chest x-ray were performed at that time. Your symptoms are worsening or if you have other concerns you may return to the emergency department for further evaluation and treatment. HOME CARE INSTRUCTIONS & INFORMATION: Thank you for choosing us for your medical needs. We hope you're satisfied with the care you received. After you leave, you must properly care for your problem and, at the same time, observe its progress. Any condition can change. Some illnesses can change rapidly over hours or days. If your condition worsens, return to the Emergency Department or see your physician promptly. ABOUT YOUR X-RAYS AND EKG'S: If you had an EKG or X-rays taken, they have been read by the Emergency Physician. The X-rays and EKG's will also be read by a Ra diologist or Channel Director within 24 hours. If discrepancies are noted, you will be notified by telephone. Please be certain the ED has a correct telephone number & address where you can be reached. Also, realize that some fractures or abnormalities do not show up on initial X-rays. If your symptoms continue, see your physician. ABOUT YOUR LABORATORY TEST: If you had laboratory tests, the results have been reviewed by the Emergency Physician. Some test results (for example cultures) may not be available for several days. You will be contacted if any test result shows you need additional treatment. Please be certain the ED has a correct telephone number and address where you can be reached. ABOUT YOUR MEDICATIONS: You will receive instructions on how to take your medicine on the prescription label you receive. Additional information may be provided by the Pharmacy. If you have questions afterwards, call the ED for clarification or further instructions. Some prescribed medications may cause drowsiness. Do not perform tasks such as driving a car or operating machinery without consulting your Pharmacist. If you feel you need a refill of pain medication, your condition will need re-evaluation. Please do not call for a refill of any medication. ABOUT YOUR SIGNATURE: Signature of this document acknowledges to followin. Understanding that you received emergency treatment and that you may be released before al medical problems are known or treated. Please be certain the ED has a correct phone number & address where you can be reached. 2. Acknowledgement that you will arrange for follow-up care as recommended. 3. Authorization for the Emergency Physician to provide information to your follow-up Physician in order to maximize your care. AT ANY TIME, IF YOUR SYMPTOMS CHANGE SIGNIFICANTLY OR WORSEN OR YOU DEVELOP NEW SYMPTOMS, RETURN TO THE EMERGENCY DEPARTMENT IMMEDIATELY FOR RE-EVALUATION. OUR GOAL IS TO PROVIDE EXCELLENT MEDICAL CARE! WE HOPE THAT WE HAVE MET YOUR EXPECTATIONS DURING YOUR EMERGENCY DEPARTMENT VISIT AND THAT YOU FEEL YOU HAVE RECEIVED EXCELLENT CARE! Referrals: [facility] [Primary Care Provider] - Follow up as needed
[2020-03-04 00:28] VITALS: BP 137/92
== END 2020-03-04 00:35 | disposition home or self-care (01) ==
LOC: ER 19:16
DX: M25.532 Pain in left wrist (principal); I10 Essential (primary) hypertension; R20.0 Anesthesia of skin; R20.8 Other disturbances of skin sensation; I25.10 Atherosclerotic heart disease of native coronary artery without angina pectoris; Z95.0 Presence of cardiac pacemaker; I25.2 Old myocardial infarction
CPT/HCPCS: 36415; 71046; 80053; 83735; 84484; 85025; 99284